=== PATIENT | male | born 1980 | race Caucasian/White ===

== ENCOUNTER 2018-02-07 19:12 | Emergency (ER) | payer SELFPAY ==
--- NOTE | 2018-02-07 19:48 | ER Report ---
History and Physical Time Seen By MD: 19:45 HPI/ROS CHIEF COMPLAINT: Suicidal thoughts and headache HISTORY OF PRESENT ILLNESS: This is a 37-year-old male who presents to the emergency department for suicidal thoughts, methamphetamine abuse and a headache. Patient states he's been using methamphetamine. He consistently over the last several weeks, he's also smoked marijuana and used cocaine. Continuous suicidal thoughts over the last several weeks as well, although he does not have a formal plan. Patient also states that several days ago he had a "seizure " may have hit his head he's unsure. Patient states he's also had previous head injuries and has had a continuous headache. Patient denies nausea or vomiting at this time. No chest pain or shortness of breath. Patient is tearful on exam. Patient is willing to go to behavioral health unit for help with his polysubstance abuse addictions. REVIEW OF SYSTEMS: Constitutional: No fever, no chills. Eyes: No discharge. ENT: No sore throat. Cardiovascular: No chest pain, no palpitations. Respiratory: No cough, no shortness of breath. Gastrointestinal: No abdominal pain, no vomiting. Genitourinary: No hematuria. Musculoskeletal: No back pain. Skin: No rashes. Neurological: As above. Psych: As above. Allergies: Coded Allergies: No Known Drug Allergies (Unverified , 02/07/18) Home Meds No Active Prescriptions or Reported Meds Past Medical/Surgical History The patient has a past medical and surgical history of multiple track bradycardia injuries, migraines, arthritis, multiple broken bones, methamphetamine abuse, cocaine use, uses marijuana, suicide attempts, depression. Reviewed Nurses Notes: Yes Constitutional Vital Sign - Last 24 Hours 02/07/18 02/07/18 02/07/18 02/07/18 19:47 19:49 19:57 20:12 Temp 97.5 Pulse 73 75 78 Resp 16 B/P (MAP) 134/99 (111) 134/99 Pulse Ox 96 95 96 O2 Delivery Room Air 02/07/18 02/07/18 02/07/18 02/07/18 20:27 20:42 20:43 20:57 Pulse ??? 71 69 B/P (MAP) 122/90 (101) Pulse Ox 95 94 02/07/18 21:00 B/P (MAP) 124/89 (101) Physical Exam General Appearance: The patient is alert, has no immediate need for airway protection and no signs of toxicity. Eyes: Pupils equal and round no pallor or injection. EOMs intact. ENT, Mouth: Mucous membranes are moist. Missing a few teeth, poor dentition. Respiratory: There are no retractions, lungs are clear to auscultation. Cardiovascular: Regular rate and rhythm. Gastrointestinal: Abdomen is soft and non tender, no masses, bowel sounds normal. Neurological: Alert and oriented 4. Moving all extremities. Follows all commands. No focal neuro deficits. Cranial nerves II through XII intact. Skin: Warm and dry, no rashes. Several track canela to the left forearm and antecubital. Musculoskeletal: Neck is supple non tender. Extremities are nontender, nonswollen and have full range of motion. DIFFERENTIAL DIAGNOSIS: After history and physical exam differential diagnosis was considered for psychosis, polysubstance abuse, depression, anxiety and suicidal thoughts. Medical Decision Making Data Points Result Diagram: 02/07/18204102/07/182041 Laboratory Hematology Test 02/07/18 20:42 02/07/18 21:15 Red Blood Count 5.37 M/uL (4.00-5.60) Mean Corpuscular Volume 88.3 fL (80.0-96.0) Mean Corpuscular Hemoglobin 29.6 pg (26.0-33.0) Mean Corpuscular Hemoglobin Concent 33.5 g/dL (32.0-36.0) Red Cell Distribution Width 16.4 % (11.5-14.5) Mean Platelet Volume 9.0 fL (7.2-11.1) Neutrophils (%) (Auto) 59.5 % (39.4-72.5) Lymphocytes (%) (Auto) 30.4 % (17.6-49.6) Monocytes (%) (Auto) 6.9 % (4.1-12.4) Eosinophils (%) (Auto) 2.0 % (0.4-6.7) Basophils (%) (Auto) 1.2 % (0.3-1.4) Nucleated RBC Relative Count (auto) 0.0 /100WBC Neutrophils # (Auto) 4.1 K/uL (2.0-7.4) Lymphocytes # (Auto) 2.1 K/uL (1.3-3.6) Monocytes # (Auto) 0.5 K/uL (0.3-1.0) Eosinophils # (Auto) 0.1 K/uL (0.0-0.5) Basophils # (Auto) 0.1 K/uL (0.0-0.1) Nucleated RBC Absolute Count (auto) 0.00 K/uL Sodium Level 141 mmol/L (137-145) Potassium Level 3.5 mmol/L (3.5-5.0) Chloride Level 102 mmol/L (98-107) Carbon Dioxide Level 31 mmol/L (22-30) Blood Urea Nitrogen 5 mg/dl (9-21) Creatinine 1.10 mg/dl (0.66-1.25) Glomerular Filtration Rate Calc > 60.0 Random Glucose 78 mg/dl (75-110) Calcium Level 8.6 mg/dl (8.4-10.2) Magnesium Level 1.9 mg/dl (1.7-2.2) Total Bilirubin 0.4 mg/dl (0.2-1.3) Aspartate Amino Transf (AST/SGOT) 28 U/L (0-35) Alanine Aminotransferase (ALT/SGPT) 45 U/L (0-56) Alkaline Phosphatase 72 U/L (0-126) Total Protein 6.9 g/dl (6.3-8.2) Albumin 3.7 g/dl (3.5-5.0) Salicylates Level < 10 mg/L Salicylate Last Dose Date unk Acetaminophen Level < 10 ug/ml Serum Alcohol < 10 mg/dl Urine Color Straw Urine Clarity Clear Urine pH 6.0 pH (4.8-9.5) Urine Specific [place] 1.004 Urine Protein Negative mg/dL (NEGATIVE) Urine Glucose (UA) Negative mg/dL (NEGATIVE) Urine Ketones Negative mg/dL (NEGATIVE) Urine Blood Negative (NEGATIVE) Urine Nitrite Negative (NEGATIVE) Urine Bilirubin Negative (NEGATIVE) Urine Urobilinogen Negative mg/dL (0.2-1.9) Urine Leukocyte Esterase Negative (NEGATIVE) Urine RBC None /HPF (0-2/HPF) Urine WBC <1 /HPF (0-5/HPF) Urine Squamous Epithelial Cells None /LPF (</=FEW) Urine Bacteria Negative /HPF (NONE-FEW) Urine Mucus None /HPF (NONE-FEW) Urine Opiates Screen Negative Urine Barbiturates Screen Negative Ur Tricyclic Antidepressants Screen Negative Urine Phencyclidine Screen Negative Urine Amphetamines Screen Positive Urine Benzodiazepines Screen Negative Urine Cocaine Screen Negative Urine Cannabinoids Screen Positive Chemistry Test 02/07/18 20:42 02/07/18 21:15 White Blood Count 7.0 k/uL (4.5-11.0) Red Blood Count 5.37 M/uL (4.00-5.60) Hemoglobin 15.9 g/dL (14.0-18.0) Hematocrit 47.4 % (42.0-52.0) Mean Corpuscular Volume 88.3 fL (80.0-96.0) Mean Corpuscular Hemoglobin 29.6 pg (26.0-33.0) Mean Corpuscular Hemoglobin Concent 33.5 g/dL (32.0-36.0) Red Cell Distribution Width 16.4 % (11.5-14.5) Platelet Count 247 K/uL (150-450) Mean Platelet Volume 9.0 fL (7.2-11.1) Neutrophils (%) (Auto) 59.5 % (39.4-72.5) Lymphocytes (%) (Auto) 30.4 % (17.6-49.6) Monocytes (%) (Auto) 6.9 % (4.1-12.4) Eosinophils (%) (Auto) 2.0 % (0.4-6.7) Basophils (%) (Auto) 1.2 % (0.3-1.4) Nucleated RBC Relative Count (auto) 0.0 /100WBC Neutrophils # (Auto) 4.1 K/uL (2.0-7.4) Lymphocytes # (Auto) 2.1 K/uL (1.3-3.6) Monocytes # (Auto) 0.5 K/uL (0.3-1.0) Eosinophils # (Auto) 0.1 K/uL (0.0-0.5) Basophils # (Auto) 0.1 K/uL (0.0-0.1) Nucleated RBC Absolute Count (auto) 0.00 K/uL Glomerular Filtration Rate Calc > 60.0 Calcium Level 8.6 mg/dl (8.4-10.2) Magnesium Level 1.9 mg/dl (1.7-2.2) Total Bilirubin 0.4 mg/dl (0.2-1.3) Aspartate Amino Transf (AST/SGOT) 28 U/L (0-35) Alanine Aminotransferase (ALT/SGPT) 45 U/L (0-56) Alkaline Phosphatase 72 U/L (0-126) Total Protein 6.9 g/dl (6.3-8.2) Albumin 3.7 g/dl (3.5-5.0) Salicylates Level < 10 mg/L Salicylate Last Dose Date unk Acetaminophen Level < 10 ug/ml Serum Alcohol < 10 mg/dl Urine Color Straw Urine Clarity Clear Urine pH 6.0 pH (4.8-9.5) Urine Specific [place] 1.004 Urine Protein Negative mg/dL (NEGATIVE) Urine Glucose (UA) Negative mg/dL (NEGATIVE) Urine Ketones Negative mg/dL (NEGATIVE) Urine Blood Negative (NEGATIVE) Urine Nitrite Negative (NEGATIVE) Urine Bilirubin Negative (NEGATIVE) Urine Urobilinogen Negative mg/dL (0.2-1.9) Urine Leukocyte Esterase Negative (NEGATIVE) Urine RBC None /HPF (0-2/HPF) Urine WBC <1 /HPF (0-5/HPF) Urine Squamous Epithelial Cells None /LPF (</=FEW) Urine Bacteria Negative /HPF (NONE-FEW) Urine Mucus None /HPF (NONE-FEW) Urine Opiates Screen Negative Urine Barbiturates Screen Negative Ur Tricyclic Antidepressants Screen Negative Urine Phencyclidine Screen Negative Urine Amphetamines Screen Positive Urine Benzodiazepines Screen Negative Urine Cocaine Screen Negative Urine Cannabinoids Screen Positive Toxicology Test 02/07/18 20:42 02/07/18 21:15 Salicylates Level < 10 mg/L Salicylate Last Dose Date unk Acetaminophen Level < 10 ug/ml Serum Alcohol < 10 mg/dl Urine Opiates Screen Negative Urine Barbiturates Screen Negative Ur Tricyclic Antidepressants Screen Negative Urine Phencyclidine Screen Negative Urine Amphetamines Screen Positive Urine Benzodiazepines Screen Negative Urine Cocaine Screen Negative Urine Cannabinoids Screen Positive Urinalysis Test 02/07/18 21:15 Urine Color Straw Urine Clarity Clear Urine pH 6.0 pH (4.8-9.5) Urine Specific [place] 1.004 Urine Protein Negative mg/dL (NEGATIVE) Urine Glucose (UA) Negative mg/dL (NEGATIVE) Urine Ketones Negative mg/dL (NEGATIVE) Urine Blood Negative (NEGATIVE) Urine Nitrite Negative (NEGATIVE) Urine Bilirubin Negative (NEGATIVE) Urine Urobilinogen Negative mg/dL (0.2-1.9) Urine Leukocyte Esterase Negative (NEGATIVE) Urine RBC None /HPF (0-2/HPF) Urine WBC <1 /HPF (0-5/HPF) Urine Squamous Epithelial Cells None /LPF (</=FEW) Urine Bacteria Negative /HPF (NONE-FEW) Urine Mucus None /HPF (NONE-FEW) EKG/Imaging EKG Interpretation 12 lead EKG: Time of EKG 2009. Rhythm: Normal sinus rhythm, ventricular rate 66 bpm. [place]: normal QRS: normal ST segments: No ST depression or elevation identified. Imaging HISTORY: Methamphetamine/cocaine use. Seizure and possible head injury. COMPARISON: None. TECHNIQUE: Contiguous axial images were obtained from the skull base to the vertex without intravenous contrast. Sagittal and coronal reformatted images are also submitted. One of the following dose optimization techniques was utilized in the performance of this exam: Automated exposure control; adjustment of the mA and/ or kV according to the patient's size; or use of an iterative reconstruction technique. Specific details can be referenced in the facility's radiology CT exam operational policy. FINDINGS: Brain volume: Normal. Ventricles: Normal. Acute ischemic changes: None. Hemorrhage: No acute intracranial hemorrhage. Masses/edema: None. [place]-white: Negative. White matter: Normal. Vessels: Negative. Extra-axial: Negative. Calvarium/scalp: No acute fracture. Skull base/visualized face: Negative. Visualized sinuses/orbits: Mild mucosal thickening in the bilateral ethmoid air cells, right greater than left. Nasal septal deviation to the left causing mild narrowing of the left nasal cavity. IMPRESSION: 1. No acute fracture, hemorrhage or intracranial mass lesion. No CT evidence of acute infarct. 2. Mild nonobstructive inflammation of the bilateral ethmoid air cells, and mild nasal septal deviation to the left causing mild narrowing of left nasal cavity. Report Dictated By: Stephenie Yeboah MD at 02/07/2018 8:43 PM Report E-Signed By: Stephenie Yeboah MD at 02/07/2018 8:46 PM WSN:[id number] ED Course/Re-evaluation ED Course The patient was admitted to room. A history and physical were obtained. Differential diagnoses were considered. A CBC, CMP and psych panel were obtained. A UA was collected. A CT of the head was negative for any acute findings. Lab studies unremarkable. Urine drug screen was positive for methamphetamines and cannabis. I did speak with Dr. Borrego as noted below, the patient will be admitted to the behavioral health unit. The patient has signed in voluntarily. 02/07/2018 9:49:54 pm I did speak with regarding the patient's case, he is accepted the patient into the behavioral health unit. Patient has signed in voluntarily and will be admitted to behavioral health for depression, suicidal ideation and polysubstance abuse. Decision to Disposition Date: Feb 07, 2018 Decision to Disposition Time: 21:48 Depart Departure Latest Vital Signs Vital Signs Date Time Temp Pulse Resp B/P (MAP) Pulse Ox O2 Delivery O2 Flow Rate FiO2 02/07/18 21:00 124/89 (101) 02/07/18 20:57 69 94 02/07/18 19:49 97.5 16 Room Air Impression: Primary Impression: Suicidal ideation Additional Impression: Methamphetamine abuse Condition: Improved Disposition: XFER TO [facility] New Scripts No Active Prescriptions or Reported Meds Problem Qualifiers KARISSA ALEMANP-BC Feb 07, 2018 19:48
--- NOTE | 2018-02-07 20:16 | EKG ---
FAC[place] [facility] [place]IENT NAME: EFRAIN GONZALEZ : [id number] MR: [id number] V: [id number] EXAM DATE: ORDERING PHYSICIAN: KARISSA ALEMAN TECHNOLOGIST: DAVIAN Test Reason : METH AND COCAINE USE Blood Pressure : / mmHG Vent. Rate : 066 BPM Atrial Rate : 066 BPM P-R Int : 156 ms QRS Dur : 090 ms QT Int : 426 ms P-R-T Axes : 030 026 039 degrees QTc Int : 446 ms Normal sinus rhythm Normal ECG No previous ECGs available Confirmed by TALAT GRIFFIN ([id number]) on 02/08/2018 6:29:08 AM Referred By: Confirmed By:TALAT GRIFFIN
[2018-02-07 20:50] LABS: PLATELET COUNT, AUTOMATED 247 K/uL (150-450)
--- NOTE | 2018-02-07 20:51 | RADIOLOGY IMAGING REPORT ---
FACILITY: [facility] PATIENT NAME: Yonny Zavala : 1980 MR: [id number] V: [id number] EXAM DATE: ORDERING PHYSICIAN: KARISSA ALEMAN TECHNOLOGIST: Location: [facility] [place] Patient: Yonny Zavala : 1980 Visit/Account:[id number] Date of Sevice: 02/07/2018 EXAMINATION: CT head without IV contrast HISTORY: Methamphetamine/cocaine use. Seizure and possible head injury. COMPARISON: None. TECHNIQUE: Contiguous axial images were obtained from the skull base to the vertex without intraven ous contrast. Sagittal and coronal reformatted images are also submitted. One of the following dose optimization techniques was utilized in the performance of this exam: Autom ated exposure control; adjustment of the mA and/or kV according to the patient's size; or use of an i terative reconstruction technique. Specific details can be referenced in the facility's radiology C T exam operational policy. FINDINGS: Brain volume: Normal. Ventricles: Normal. Acute ischemic changes: None. Hemorrhage: No acute intracranial hemorrhage. Masses/edema: None. [place]-white: Negative. White matter: Normal. Vessels: Negative. Extra-axial: Negative. Calvarium/scalp: No acute fracture. Skull base/visualized face: Negative. Visualized sinuses/orbits: Mild mucosal thickening in the bilateral ethmoid air cells, right greater than left. Nasal septal deviation to the left causing mild narrowing of the left nasal cavity. IMPRESSION: 1. No acute fracture, hemorrhage or intracranial mass lesion. No CT evidence of acute infarct. 2. Mild nonobstructive inflammation of the bilateral ethmoid air cells, and mild nasal septal deviati on to the left causing mild narrowing of left nasal cavity. Report Dictated By: Stephenie Yeboah MD at 02/07/2018 8:43 PM Report E-Signed By: Stephenie Yeboah MD at 02/07/2018 8:46 PM WSN:[id number]
[2018-02-07 22:00] VITALS: BP 122/88
[2018-02-08] MEDS ORDERED: MULT-1379 PO (13:35)
[2018-02-08] MEDS ORDERED: NICO-219 BC (13:36)
== END 2018-02-07 22:59 ==
LOC: ER 19:32
DX: F15.10 Other stimulant abuse, uncomplicated (principal); R45.851 Suicidal ideations; R51 Headache; F19.90 Other psychoactive substance use, unspecified, uncomplicated
CPT/HCPCS: 36415; 70450; 80305; 80320; 80329; 81001; 82040; 82247; 82310; 82374; 82435; 82565; 82947; 83735; 84075; 84132; 84155; 84295; 84443; 84450; 84460; 84520; 85025; 93005; 99284

== ENCOUNTER 2018-02-07 21:50 | Inpatient (IN) | payer SELFPAY ==
[~2018-02-07] VITALS: Ht 182.9 cm; Wt 95.3 kg
[2018-02-07] MEDS ORDERED: ACETAMINOPHEN 325 MG TAB PO PRN (23:15)
[2018-02-07] MEDS ORDERED: MAG HYD/AL HYD/SIMETH 30ML UDC PO PRN (23:15)
[2018-02-08 00:15] VITALS: BP 117/81
[2018-02-08] MEDS ORDERED: MULTIVITAMINS TAB PO SCH (09:00)
[2018-02-08] MEDS ORDERED: buPROPion SR 150 MG TABCR PO SCH ×2 (09:55→12:00)
[2018-02-08] MEDS: NICOTINE POLACRILEX 2 MG GUM PO PRN ×2 (10:00→12:24)
[2018-02-08 11:17] VITALS: BP 117/90
[2018-02-08] MEDS ORDERED: MULT-1379 PO (13:35)
[2018-02-08] MEDS ORDERED: NICO-219 BC (13:36)
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
== END 2018-02-08 13:50 | disposition left against medical advice (07) | DRG 894 ==
LOC: BHS 21:50
PROVIDERS: ADMIT Psychiatry & Neurology Psychiatry; ATTEND Psychiatry & Neurology Psychiatry
DX: F15.24 Other stimulant dependence with stimulant-induced mood disorder (principal); F17.210 Nicotine dependence, cigarettes, uncomplicated; Z53.29 Procedure and treatment not carried out because of patient's decision for other reasons; Z91.5 Personal history of self-harm; Z81.8 Family history of other mental and behavioral disorders

== ENCOUNTER 2018-03-31 17:12 | Emergency (ER) | payer OTHER ==
[~2018-03-31 17:12] MED LIST: MULT-1379 PO; NICO-219 BC
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
--- NOTE | 2018-03-31 18:12 | RADIOLOGY IMAGING REPORT ---
[place] [facility] [place] Yonny Zavala : 1980 MR: [id number] V: [id number] EXAM DATE: ORDERING PHYSICIAN: MAXIMILIANO CHEN TECHNOLOGIST: Location: [facility] [place] Patient: Yonny Zavala : 1980 Visit/Account:[id number] Date of Sevice: 03/31/2018 Exam type: 2 views left forearm History: Trauma Comparison: None. Findings: There is no acute fracture of the left forearm. The radius and ulna appear intact. What is seen of th e elbow and wrist joints are unremarkable. Carpus aligns appropriately. IMPRESSION: 1. No acute fracture of the left forearm. Report Dictated By: Devan Montenegro MD at 03/31/2018 6:08 PM Report E-Signed By: Devan Montenegro MD at 03/31/2018 6:09 PM WSN:[id number]
[2018-03-31 18:30] VITALS: BP 112/83
== END 2018-03-31 18:44 | disposition home or self-care (01) ==
LOC: ER 18:14
DX: S40.022A Contusion of left upper arm, initial encounter (principal)
CPT/HCPCS: 99283